=== PATIENT | female | born 1950 | race Two or more races ===

== ENCOUNTER 2017-12-12 16:57 | Inpatient (IN) | payer OTHER ==
[~2017-12-12] VITALS: Ht 152.4 cm; Wt 63.5 kg
[~2017-12-12 16:57] MED LIST: CIPRO500 MG PO; GABAPENTIN800 MG PO; GLIPIZIDE5 MG PO; HUMULIN 70/30 V10 ML; INTESTINEX680 MG PO; LISINOPRIL-HCTZ1 TA7 PO; RECTICARE30 GM TP; ULTRACET PO
[2017-12-27] MEDS ORDERED: AMARYL PO (11:55)
[2018-01-31] MEDS ORDERED: GLIMEPIRIDE4 MG PO (08:42)
[2018-02-05] MEDS ORDERED: OXYC1TAB9 PO (14:31)
[2018-02-05] MEDS ORDERED: INTESTINEX680 M1 PO (14:32)
[2018-02-05] MEDS ORDERED: IMODIUM A-D2 MG PO (14:32)
== END 2018-02-05 16:43 | disposition home or self-care (01) | DRG 331 ==
LOC: SURG 01-03 11:15 → O/R 01-31 07:55 → SURG 01-31 11:15
PROVIDERS: Surgery
PROC: 0DTP4ZZ Resection of Rectum, Percutaneous Endoscopic Approach (ICD-10-PCS; 2018-01-31)
PROC: 07TC4ZZ Resection of Pelvis Lymphatic, Percutaneous Endoscopic Approach (ICD-10-PCS; 2018-01-31)
PROC: 0D1B4Z4 Bypass Ileum to Cutaneous, Percutaneous Endoscopic Approach (ICD-10-PCS; 2018-01-31)
PROC: 0DJD8ZZ Inspection of Lower Intestinal Tract, Via Natural or Artificial Opening Endoscopic (ICD-10-PCS; 2018-01-31)
PROC: 0DTN4ZZ Resection of Sigmoid Colon, Percutaneous Endoscopic Approach (ICD-10-PCS; principal; 2018-01-31 17:00)
DX: C19 Malignant neoplasm of rectosigmoid junction (principal); E11.9 Type 2 diabetes mellitus without complications; R33.8 Other retention of urine

== ENCOUNTER 2018-02-13 17:30 | Emergency (ER) | payer OTHER ==
[~2018-02-13] VITALS: Ht 152.4 cm; Wt 60.8 kg
[~2018-02-13 17:30] MED LIST changes: +AMARYL PO; +GLIMEPIRIDE4 MG PO; +IMODIUM A-D2 MG PO; +INTESTINEX680 M1 PO; +OXYC1TAB9 PO
[2018-02-14] MEDS ORDERED: INTESTINEX680 M1 PO (09:26)
[2018-02-14] MEDS ORDERED: IMODIUM A-D2 MG PO (09:26)
[2018-02-14] MEDS ORDERED: LEVAQUIN750 MG PO (09:27)
== END 2018-02-14 12:01 | disposition home or self-care (01) ==
LOC: ER 17:30
DX: R30.0 Dysuria (principal); K62.89 Other specified diseases of anus and rectum; R33.8 Other retention of urine; C20 Malignant neoplasm of rectum; Z93.2 Ileostomy status

== ENCOUNTER 2018-04-26 13:33 | Inpatient (IN) | payer OTHER ==
[~2018-04-26] VITALS: Ht 152.4 cm; Wt 63.5 kg
[~2018-04-26 13:33] MED LIST changes: +LEVAQUIN750 MG PO
[2018-05-21] MEDS ORDERED: VISTARIL25 MG PO (14:59)
[2018-05-21] MEDS ORDERED: LANTUS SOL100 UNIT/1 (14:59)
[2018-05-21] MEDS ORDERED: PRILOSEC10 MG PO (15:00)
[2018-05-26] MEDS ORDERED: OMEPRAZOLE20 MG PO (12:44)
[2018-05-26] MEDS ORDERED: PERCOCET 5-3251 EACH PO (12:44)
[2018-05-26] MEDS ORDERED: INTESTINEX680 M1 PO (12:44)
== END 2018-05-26 14:14 | disposition home or self-care (01) | DRG 330 ==
LOC: ADM 05-16 12:00 → EDSTATUS 05-16 12:00 → ADM 05-20 09:00 → SURH 05-23 06:22 → O/R 05-23 06:22 → SURH 05-23 12:00
PROVIDERS: ADMIT Surgery
PROC: 0DQB4ZZ Repair Ileum, Percutaneous Endoscopic Approach (ICD-10-PCS; principal; 2018-05-23 14:00)
DX: Z43.2 Encounter for attention to ileostomy (principal); C20 Malignant neoplasm of rectum; E11.22 Type 2 diabetes mellitus with diabetic chronic kidney disease; I12.9 Hypertensive chronic kidney disease with stage 1 through stage 4 chronic kidney disease, or unspecified chronic kidney disease; N18.2 Chronic kidney disease, stage 2 (mild); E11.21 Type 2 diabetes mellitus with diabetic nephropathy

== ENCOUNTER 2018-05-21 11:30 | Outpatient (CLI) | payer OTHER ==
[2018-05-21] MEDS ORDERED: VISTARIL25 MG PO (14:59)
[2018-05-21] MEDS ORDERED: LANTUS SOL100 UNIT/1 (14:59)
[2018-05-21] MEDS ORDERED: PRILOSEC10 MG PO (15:00)
== END 2018-05-21 15:00 | disposition home or self-care (01) ==
LOC: EKG 11:30
DX: R94.31 Abnormal electrocardiogram [ECG] [EKG] (principal)

== ENCOUNTER 2020-07-12 06:15 | Day surgery (SDC) | payer OTHER ==
[~2020-07-12 06:15] MED LIST changes: +ATAC PO; +HUM; +LANTUS; +LANTUS SOL100 UNIT/1; +METO PO; +OMEPRAZOLE20 MG PO; +PERCOCET 5-3251 EACH PO; +PRILOSEC10 MG PO; +VISTARIL25 MG PO
[2020-07-12] MEDS ORDERED: PERCOCET 5-3251 EACH PO (08:21)
[2020-07-12] MEDS ORDERED: RECTICARE30 GM TOP (08:22)
== END 2020-07-12 14:30 | disposition home or self-care (01) ==
LOC: CIR.AMB 06:15
PROVIDERS: ATTEND Surgery
DX: C20 Malignant neoplasm of rectum (principal); K62.4 Stenosis of anus and rectum

== ENCOUNTER 2020-08-05 11:15 | Inpatient (IN) | payer OTHER ==
[~2020-08-05] VITALS: Ht 152.4 cm; Wt 63.5 kg
[~2020-08-05 11:15] MED LIST changes: +RECTICARE30 GM TOP
[2020-08-05] MEDS ORDERED: TOPROL XL25 M1 PO (15:09)
[2020-08-05] MEDS ORDERED: ATACAND HCT 161 EACH PO (15:10)
[2020-08-05] MEDS ORDERED: HUMALOG100 UNIT/2 (15:10)
[2020-08-16] MEDS ORDERED: HYOSCYAMINE0.125 M1 SL (16:00)
[2020-08-16] MEDS ORDERED: OXYC1TAB9 PO (16:01)
== END 2020-08-16 16:31 | disposition home or self-care (01) | DRG 331 ==
LOC: SURH 08-12 08:38 → O/R 08-12 08:38 → SURH 08-12 11:15
PROVIDERS: ADMIT Surgery; ATTEND Surgery
PROC: 0D1N4Z4 Bypass Sigmoid Colon to Cutaneous, Percutaneous Endoscopic Approach (ICD-10-PCS; 2020-08-12)
PROC: 07BC4ZX Excision of Pelvis Lymphatic, Percutaneous Endoscopic Approach, Diagnostic (ICD-10-PCS; 2020-08-12)
PROC: 0DBN4ZZ Excision of Sigmoid Colon, Percutaneous Endoscopic Approach (ICD-10-PCS; 2020-08-12)
PROC: 0DTP4ZZ Resection of Rectum, Percutaneous Endoscopic Approach (ICD-10-PCS; principal; 2020-08-12 14:15)
DX: C20 Malignant neoplasm of rectum (principal); R59.0 Localized enlarged lymph nodes; I12.9 Hypertensive chronic kidney disease with stage 1 through stage 4 chronic kidney disease, or unspecified chronic kidney disease; E11.22 Type 2 diabetes mellitus with diabetic chronic kidney disease; N18.2 Chronic kidney disease, stage 2 (mild); N99.89 Other postprocedural complications and disorders of genitourinary system